=== PATIENT | female | born 1975 | race African-American/Black ===

== ENCOUNTER 2017-05-22 23:06 | Inpatient (IN) ==
--- NOTE | 2017-05-22 23:28 | Emergency Department Note ---
Arrival - Arrival Chief Complaint: Non-Specific Stated Complaint: Seizure ED Nursing Triage Note: Pt transfer from [facility] with new onset of seizure. Mode of Arrival: Stretcher Time Seen by Provider: 05/22/17 23:26 - History of Present Illness HPI Narrative: This is a 42-year-old female of descent who is transferred from [facility] where she presented in the emergency department because of a seizure witnessed by her where a workup showed a normal CT scan of the brain normal urine drug screen but showed a hemoglobin of 5 and hematocrit of 16. The patient is a known alcoholic drinking mostly beer and is noted to have an elevated bilirubin of 2.6 and elevated liver function studies. Patient's daughter says that she has pica where she eats monserrat. He denies black stools or abdominal pain. Allergies/Adverse Reactions: Allergies Allergy/AdvReac Type Severity Reaction Status Date / Time No Known Allergies Allergy Unverified 05/22/17 23:15 Review of System - Review of System Constitutional: Absent: fever, night sweats Eyes: Absent: redness, vision change Head/Ears/Nose/Throat: Absent: epistaxis, nasal drainage Respiratory: Absent: respiratory distress, wheezing Cardiovascular: Absent: dyspnea on exertion, orthopnea Gastrointestinal: Absent: diarrhea, constipation Genitourinary female: Absent: dysuria, frequency Musculoskeletal: Absent: joint swelling, lower back pain Skin: Absent: change in color, change in hair/nails Neurological: Absent: numbness, paresthesias Psychiatric: Absent: anxiety, depression Endocrine: Absent: heat intolerance, polydipsia, polyuria Hematological/Lymphatic: Absent: easy bruising, lymphadenopathy Allergic/Immunologic: Absent: urticaria, itchy eyes Medical,Surgical,& Family Hx - Surgical History Reproductive Surgeries: Surgical HX of;: Hysterectomy - Social History Smoking Status: Unknown if ever smoked Frequency of Alcohol Use: Occasionally Type of Drug Use: None Exam Vital Signs: Vital Signs Temperature 98.7 F 05/22/17 23:12 Pulse Rate 92 H 05/22/17 23:12 Respiratory Rate 20 05/22/17 23:12 Blood Pressure 115/84 05/22/17 23:12 O2 Sat by Pulse Oximetry 98 05/22/17 23:12 - General General appearance: alert - Eye Eye exam: Present: PERRL, EOMI - ENT ENT exam: Present: normal exam, normal oropharynx - Neck Neck exam: Present: normal inspection, full ROM - Chest Chest inspection: Present: normal inspection - Cardiovascular Cardiovascular exam: Present: regular rate, normal rhythm - Abdominal Exam Abdominal exam: Present: soft, distention - Extremities Exam Extremities exam: Present: normal inspection, full ROM - Back Exam Back exam: Present: normal inspection, full ROM - Neurological Exam Neurological exam: Present: alert, oriented X3, CN II-XII intact - Psychiatric Psychiatric exam: Present: normal affect, normal mood - Skin Skin exam: Present: warm, dry Course Course Narrative: The patient has hemoglobin of 5 and hematocrit of 16. She appears to have alcoholic liver disease and it could be that her new onset seizure disorder was due to alcohol withdrawal symptoms. The case was discussed with the hospitalist who agreed to admit the patient to the hospital for possible blood transfusion and further evaluation and treatment. Disposition Clinical Impression: Seizure, Acute alcoholic liver disease, Anemia Disposition: Still a Patient Additional Instructions: Because the patient's hemoglobin is 5 and she appears to have alcohol-related liver disease and a first-time seizure it seems reasonable patient should be admitted to the hospital. The case was discussed with the hospitalist who agreed to admit the patient.
[2017-05-23] MEDS ORDERED: ACETAMINOPHEN 325 MG TABLET PO PRN (00:41)
[2017-05-23] MEDS ORDERED: LORazepam 2 MG/1 ML VIAL IV PRN (00:46)
[2017-05-23] MEDS ORDERED: SODIUM CHLORIDE 0.9% 250 ML IV PRN (00:47)
--- NOTE | 2017-05-23 01:03 | Hospitalist History & Physical ---
Assessment and Plan (1) Alcoholism Status: Acute Current Visit: Yes (2) Thrombocytopenia Status: Acute Current Visit: Yes (3) Hypomagnesemia Status: Acute Current Visit: Yes (4) Hypokalemia Status: Acute Current Visit: Yes (5) Anemia Status: Acute Current Visit: Yes (6) Seizure Status: Acute Assessment and plan: Our plan for this patient. 1. Admit patient to monitored bed 2. Repeat all labs 3. Transfuse 2 units of packed red blood cells if hemoglobin is less than 8 4. Replete magnesium if it is confirmed low 5. Replete potassium if it is confirmed low 6. DT prophylaxis 7. Obtain record of CT scan of head from outside facility 8. Anemia profile Current Visit: Yes History of Present Illness Chief complaint: Seizure activity History of present illness: Ms. Mccall is a 42 year old female with past medical history of alcoholism presents to our hospital as a transfer from [facility]. According to the patient was doing fine tonight. All of a sudden she started doing some violent shaking. He describes it is her whole body was shaking and she was unresponsive. The whole episode lasted approximately 1 minute there was no loss of bowel or bladder function. She would not respond to him during the. During the seizure or right after the seizure. He said that she she was not herself for at least 2-3 minutes and then started to respond to him at that time. EMS got there after about 10 minutes and brought her to [facility] where she had a workup done. Patient was found to be hypokalemic hypomagnesemic and anemic at the outside facility. Labs were not repeated our hospital. No medications other than oral Ativan was given to the patient. She was subsequently transferred to our hospital for further evaluation I was consulted to admit her. Allergies Allergy/AdvReac Type Severity Reaction Status Date / Time No Known Allergies Allergy Unverified 05/22/17 23:15 Medical,Surgical,& Family Hx - Medical History Medical History: noncontributory (Patient denies any medical problems) - Surgical History Reproductive Surgeries: Surgical HX of;: Hysterectomy - Family History Family History: Reports;: Family Hypertension - Social History Smoking Status: Unknown if ever smoked Frequency of Alcohol Use: Frequently Type of Drug Use: None 12 point system: reviewed and no additional remarkable complaints except as stated Exam - Constitutional Vitals: Period Temp Pulse Resp BP Sys/Palmer Pulse Ox Last 24 Hr 98.7 F-98.7 F 92-92 20-20 115-115/84-84 98 General appearance: under weight - Head Head exam: Present: normal inspection - Eye Eye exam: Present: EOMI Pupils: Present: KAILA - ENT ENT exam: Present: normal exam - Neck Neck exam: Present: normal inspection - Respiratory Respiratory exam: Present: clear to auscultation bilaterally - Cardiovascular Cardiovascular exam: Present: regular rate and rhythm - GI/Abdominal GI/Abdominal exam: Present: normal bowel sounds - Extremities Exam Extremities exam: Present: normal inspection - Back Exam Back exam: Present: normal inspection - Neurological Exam Neurological exam: Present: alert - Psychiatric Psychiatric exam: Present: normal affect - Skin Skin exam: Present: normal color Results - Labs Labs: Patient had a workup at the outside hospital. White count 6.7 hemoglobin 5.1 hematocrit 16.7 platelets 98 glucose 141 BUN 7 creatinine 0.7 sodium 135 potassium 3.0 chloride 101 bicarb 18 calcium 7.[address] scan is was performed at the outside facility. I cannot get them to answer the phone
[2017-05-23 01:47] LABS: Basophils % 0.4 % (0.0-0.8); Eosinophils % 0.8 % (0.00-10.9); Hematocrit 23.7 VOL% (35.7-47.0); Hemoglobin 7.3 GM/DL (12.0-16.0); Immature Granulocytes % 0.8 %; Immature Granulocytes Absolute 0.04 #; Mean Corpuscular HGB Conc 30.8 GM/DL (32-36); Mean Corpuscular Hemoglobin 25 PG (27-34); Mean Corpuscular Volume 80.6 FL (87-102); Mean Platelet Volume 11.6 FL (9.6-12.0); Monocytes # 0.8 10*3/uL (0.11-0.8); Monocytes % 15.3 % (1.7-12.7); NRBC # 0.15 10*3/uL; Neutrophils # 3.2 10*3/uL (1.4-7.4); Neutrophils % 62.7 % (38.7-73.9); Red Blood Count 2.94 MC/CUMM (3.8-5.5); Red Cell Distribution Width 26.8 % (9.3-17.3); White Blood Count 5.1 T/CUMM (4-12)
[2017-05-23 01:52] LABS: Platelet Count 61 T/CUMM (130-400)
[2017-05-23 01:58] LABS: Albumin 2.2 G/DL (3.4-5.0); Bilirubin,Total 2.3 MG/DL (0.2-1.0); Calcium 7.1 MG/DL (8.5-10.1); Osmolality,Calculated 265.2 MOS/KG (273-304); Potassium 2.8 MMOL/L (3.5-5.1); Total Protein 8.4 G/DL (6.4-8.3)
[2017-05-23] MEDS ORDERED: POTASSIUM CHLORIDE 20 MEQ TABLET PO PRN (02:29)
[2017-05-23 02:55] LABS: Sedimentation Rate-Westergren 97 MM/HR (0-20)
[2017-05-23] MEDS ORDERED: MAGNESIUM SULF RIDER 4 GM in PREMIX 1 EACH IV PRN (03:30)
[2017-05-23] MEDS: MAGNESIUM SULF RIDER 2 GM in PREMIX 1 EACH IV PRN ×2 (04:59→11:57)
[2017-05-23] MEDS: POTASSIUM CHLORIDE 20 MEQ TABLET PO PRN ×4 (04:59→10:21)
[2017-05-23 05:06] LABS: Band Neutrophils 20 % (0-10); Lymphocytes 19 % (20-55); Segmented Neutrophils 51 % (50-85); Total Cells Counted 100
[2017-05-23 05:07] LABS: Hypochromasia 2+; Target Cells 3+
[2017-05-23 05:08] LABS: Polychromasia 1+
[2017-05-23 05:09] LABS: Anisocytosis 2+; Nucleated Red Blood Cells 2 (0-5); Poikilocytosis 1+
[2017-05-23 06:52] LABS: Folate 13.2 NG/ML (5.4-24.0); Vitamin B12 > 2000 PG/ML (211-911)
[2017-05-23] MEDS ORDERED: POTASSIUM CHLORIDE 20 MEQ TABLET PO ONE ×2 (08:11→15:00)
[2017-05-23] MEDS: MULTIVITAMIN (CENTRUM) TABLET PO SCH (08:13)
[2017-05-23] MEDS: FOLIC ACID 1 MG TABLET PO SCH (08:13)
[2017-05-23] MEDS: THIAMINE 100 MG TABLET PO SCH (08:13)
[2017-05-23] MEDS: CLORAZEPATE 3.75 MG TABLET PO SCH ×3 (08:13→20:50)
[2017-05-23] MEDS: PANTOPRAZOLE 40 MG TABLET PO SCH (08:13)
--- NOTE | 2017-05-23 08:18 | XRay Report ---
History is short of breath Chest, one view The heart is normal in size. The lungs are clear. Impression: No acute pathology seen. PROCEDURE INTERPRETED AT [facility] DEPARTMENT OF RADIOLOGY Final Report Signed by: Dr. Luisa Duff
[2017-05-23] MEDS: MAGNESIUM OXIDE 400 MG TABLET PO SCH ×3 (09:29→20:50)
[2017-05-23 09:48] LABS: Hemoglobin A1 (Alkaline) 97.8 % (96.5-98.5); Hemoglobin A2 (Alkaline) 2.2 % (1.5-3.5)
--- NOTE | 2017-05-23 10:48 | Event Note ---
Patient seen and examined. No acute events overnight. Case discussed with nursing staff. Labs reviewed. Ms. Mccall is receiving her second unit of packed red blood cells now. She is also receiving aggressive potassium and magnesium replacement. She has had no further seizure activity. Her son is at the bedside. We discussed her chronic alcohol intake and the need to abstain from all alcohol products. The patient has evidence of chronic liver disease secondary to chronic alcohol ingestion. She has anemia as well as thrombocytopenia with elevated and abnormal liver function tests. She is hospitalized for new onset seizure which may be related to alcohol withdrawal versus severe electrolyte abnormalities including hypokalemia and hypomagnesemia. She is awake and alert and oriented and was able to answer all questions. She understands that she needs to quit drinking alcohol. Further recommendations will depend on her response to therapy. This is an addendum to the previously documented history and physical as this patient was admitted after midnight by my partner.
[2017-05-23 13:20] LABS: Basophils % 0.5 % (0.0-0.8); Eosinophils # 0.1 10*3/uL (0.0-0.87); Eosinophils % 0.9 % (0.00-10.9); Hematocrit 26.6 VOL% (35.7-47.0); Hemoglobin 8.3 GM/DL (12.0-16.0); Immature Granulocytes % 0.6 %; Immature Granulocytes Absolute 0.04 #; Lymphocytes % 14.4 % (21.3-54.2); Mean Corpuscular HGB Conc 31.2 GM/DL (32-36); Mean Corpuscular Hemoglobin 25 PG (27-34); Mean Corpuscular Volume 79.2 FL (87-102); Monocytes # 0.9 10*3/uL (0.11-0.8); Monocytes % 13.7 % (1.7-12.7); NRBC # 0.15 10*3/uL; Neutrophils # 4.7 10*3/uL (1.4-7.4); Neutrophils % 69.9 % (38.7-73.9); Red Blood Count 3.36 MC/CUMM (3.8-5.5)
[2017-05-23 13:21] LABS: Platelet Count 82 T/CUMM (130-400); White Blood Count 6.7 T/CUMM (4-12)
[2017-05-23 13:41] LABS: Calcium 7.2 MG/DL (8.5-10.1); Magnesium 2.4 MG/DL (1.8-2.4); Osmolality,Calculated 266.2 MOS/KG (273-304)
[2017-05-23 13:49] LABS: Albumin 2.2 G/DL (3.4-5.0); Bilirubin,Total 2.6 MG/DL (0.2-1.0); Calcium 7.5 MG/DL (8.5-10.1); Magnesium 2.6 MG/DL (1.8-2.4); Osmolality,Calculated 266.2 MOS/KG (273-304); Total Protein 8.2 G/DL (6.4-8.3)
--- NOTE | 2017-05-23 14:41 | Neurology Consult Note ---
History of Present Illness History of present illness: Ms. Mccall is a 42 year old right-handed with past medical history of alcoholism presents to our hospital as a transfer from [facility]. Patient reported that she probably had a seizure last night. She reported that she was sitting and reading book and she passed out. is not available at this time. However patient reported that her told her that she was shaking all over. Patient does admit tongue biting. According to the chart reported that she was doing fine last night. All of a sudden she started doing some violent shaking. He describes it was her whole body was shaking and she was unresponsive. No urinary incontinence reported. The downtime was probably 2 minutes followed by some confusion and tiredness for another 2-3 minutes. Patient was found to be hypokalemic hypomagnesemic and anemic at the outside facility. Labs were not repeated our hospital. No medications other than oral Ativan was given to the patient. Home Medications Medication Instructions Recorded Confirmed Type No Known Home Medications [No 05/23/17 05/23/17 History Known Home Medications] Allergies Allergy/AdvReac Type Severity Reaction Status Date / Time No Known Allergies Allergy Unverified 05/22/17 23:15 12 point system: reviewed and no additional remarkable complaints except as stated Medical,Surgical,& Family Hx - Medical History Gastrointestinal: History of: GERD (Takes Prilosec OTC as needed) Hematology: History of: Anemia Other: History of: Miscellaneous Medical Problems (Pica) - Surgical History Thoracic Surgeries: Patient denies;: Organ Transplant, Lobectomy Neurologic Surgeries: Patient denies: Neurologic Surgery HEENT Surgeries: Patient denies: Eye Surgery, Tonsilectomy & Adenoidectomy Abdominal Surgeries: Patient denies: Abdominal Surgery Reproductive Surgeries: Surgical HX of;: Hysterectomy Patient denies;: Genitourinary Surgery - Family History Family History: Reports;: Family Hypertension - Social History Smoking Status: Never smoker Frequency of Alcohol Use: Frequently Type of Drug Use: None Exam - Constitutional Vitals: Period Temp Pulse Resp BP Sys/Palmer Pulse Ox Last 24 Hr 98 F-99.3 F 76-98 17-21 107-145/67-89 93-100 Exam: GENERAL: Patient is in no acute distress. NECK: Neck is supple. There is no JVD. No carotid bruits present. No thyroid masses. CVS: First and second heart sounds are normal. There is no S3 present. Regular rate and rhythm. RESPIRATORY: Lungs are clear to auscultation without any rales or rhonchi. ABDOMEN: Soft and non-tender. Bowel sounds are present. There is no hepatosplenomegaly. EXT: There is no palpable edema. Peripheral pulses are present. Skin: No rashes Central Nervous system: General: Alert, awake and Oriented x 3 Speech: Fluent Comprehension: Intact and normal Facial expressions: Normal Cranial Nerves: CN1/Olfactory: Normal CN II/ Optic: Normal, Visual Hobson unreliable CN III, and : KAILA & EOMI CN V: Normal & intact CN VII: face is symmetric CNVIII: Normal CN XI/X/XI/XII: Intact and Normal Motor: Bulk and Tone is normal. Strength in the right 5/5 Strength in the left 5/5 Sensory: Grossly intact for all the modalities of PP, LT and temp sense Reflexes: 1+ and symmetrical Cerebellar function: Normal finger to nose and heel to hobbs testing. Toes: Equivocal Gait: Not tested at this time Results - Labs CBC & BMP: 05/23/17 13:12 05/23/17 13:12 Assessment and Plan (1) New onset seizure Status: Acute Assessment and plan: This could very well be alcohol induced. MRI of the brain EEG Thank you for the consult Current Visit: Yes
--- NOTE | 2017-05-23 16:38 | Magnetic Resonance Report ---
Exam: MR head/brain wo con Date: 05/23/2017 2:42 PM Comparison: CT brain 05/22/2017 Indication: New onset seizures Technique:[Multiple acquisitions were obtained including sagittal T1, coronal T2, and axial ADC, diffusion, FLAIR, T2, GRE, and T1 scans without contrast only. Scans were obtained on a 1.5 Yusra magnet.] Findings: The ventricles remain normal in size with no midline displacement. No acute infarction is identified on the diffusion scans. Diffuse bilateral T1 basal ganglia hyperintensity. The pituitary has normal appearance and the cerebellar tonsils are most normal in location. No acute infarction is identified on the diffusion scans. No evidence of hemorrhage, mass, extracerebral collection, or mesial temporal sclerosis. Diffuse atrophy which is pronounced for the patient's stated age. Mucosal thickening/fluid in the paranasal sinuses especially in the ethmoid air cells and the right maxillary sinus. No acute findings in the orbits, temporal bones, and [place] of Zuniga. Impression: Diffuse cerebral atrophy which is pronounced for the patient's stated age. Symmetric bilateral basal ganglia T1 hyperintensity which can be associated with calcium and phosphate abnormalities, hepatic failure, Ac's disease, toxins, etc. Moderate sinusitis. PROCEDURE INTERPRETED AT [facility] DEPARTMENT OF RADIOLOGY Final Report Signed by: Dr. Linda Merino
[2017-05-23 19:40] LABS: Barbiturates Screen,Urine Negative (Negative); Benzodiazepines Screen,Urine Negative (Negative); Cannabinoid Screen,Urine Negative (Negative); Opiate Screen,Urine Negative (Negative); Phencyclidine Screen,Urine Negative (Negative)
[2017-05-24 05:32] LABS: Basophils % 0.2 % (0.0-0.8); Eosinophils # 0.1 10*3/uL (0.0-0.87); Eosinophils % 1.1 % (0.00-10.9); Hematocrit 24.2 VOL% (35.7-47.0); Hemoglobin 7.8 GM/DL (12.0-16.0); Immature Granulocytes % 0.3 %; Immature Granulocytes Absolute 0.02 #; Lymphocytes # 1.4 10*3/uL (1.4-4.0); Lymphocytes % 22.9 % (21.3-54.2); Mean Corpuscular HGB Conc 32.2 GM/DL (32-36); Mean Corpuscular Hemoglobin 27 PG (27-34); Mean Corpuscular Volume 82.3 FL (87-102); Mean Platelet Volume 11.9 FL (9.6-12.0); Monocytes # 0.8 10*3/uL (0.11-0.8); NRBC # 0.08 10*3/uL; Neutrophils # 3.9 10*3/uL (1.4-7.4); Neutrophils % 62.5 % (38.7-73.9); Red Blood Count 2.94 MC/CUMM (3.8-5.5); Red Cell Distribution Width 23.9 % (9.3-17.3); White Blood Count 6.2 T/CUMM (4-12)
[2017-05-24 05:34] LABS: Platelet Count 92 T/CUMM (130-400)
[2017-05-24 05:55] LABS: Calcium 6.9 MG/DL (8.5-10.1); Osmolality,Calculated 268.8 MOS/KG (273-304); Potassium 4.7 MMOL/L (3.5-5.1)
[2017-05-24 06:38] LABS: Anisocytosis 2+; Band Neutrophils 1 % (0-10); Eosinophils 1 % (0-10); Lymphocytes 21 % (20-55); Myelocytes 4 %; Nucleated Red Blood Cells 1 (0-5); Platelet Estimate Decreased; Polychromasia Slight; Segmented Neutrophils 64 % (50-85); Target Cells Few; Total Cells Counted 100
[2017-05-24] MEDS: PANTOPRAZOLE 40 MG TABLET PO SCH (07:59)
[2017-05-24] MEDS: CLORAZEPATE 3.75 MG TABLET PO SCH ×3 (07:59→21:39)
[2017-05-24] MEDS: FOLIC ACID 1 MG TABLET PO SCH (07:59)
[2017-05-24] MEDS: MAGNESIUM OXIDE 400 MG TABLET PO SCH ×3 (07:59→21:39)
[2017-05-24] MEDS: THIAMINE 100 MG TABLET PO SCH (07:59)
[2017-05-24] MEDS: MULTIVITAMIN (CENTRUM) TABLET PO SCH (07:59)
--- NOTE | 2017-05-24 12:49 | Neurology Progress Note ---
Neurology - PN : Subjective Interval history: Patient seems to be doing okay. No more seizures reported. EEG is within normal limits. MRI looks okay except cerebral atrophy. It looks like patient most likely had alcohol induced/withdrawal seizure. Exam (Progress Note) - Constitutional Vitals: Period Temp Pulse Resp BP Sys/Palmer Pulse Ox Last 24 Hr 98.2 F-99.0 F 73-85 17-20 91-110/67-73 97-100 Exam: GENERAL: Patient is in no acute distress. NECK: Neck is supple. There is no JVD. No carotid bruits present. No thyroid masses. CVS: First and second heart sounds are normal. There is no S3 present. Regular rate and rhythm. RESPIRATORY: Lungs are clear to auscultation without any rales or rhonchi. ABDOMEN: Soft and non-tender. Bowel sounds are present. There is no hepatosplenomegaly. EXT: There is no palpable edema. Peripheral pulses are present. Skin: No rashes Central Nervous system: General: Alert, awake and Oriented x 3 Speech: Fluent Comprehension: Intact and normal Facial expressions: Normal Cranial Nerves: CN1/Olfactory: Normal CN II/ Optic: Normal, Visual Hobson unreliable CN III, and : KAILA & EOMI CN V: Normal & intact CN VII: face is symmetric CNVIII: Normal CN XI/X/XI/XII: Intact and Normal Motor: Bulk and Tone is normal. Strength in the right 5/5 Strength in the left 5/5 Sensory: Grossly intact for all the modalities of PP, LT and temp sense Reflexes: 1+ and symmetrical Cerebellar function: Normal finger to nose and heel to hobbs testing. Toes: Equivocal Gait: Able to get up and walk Results - Labs CBC & BMP: 05/24/17 04:37 05/24/17 04:37 Assessment and Plan (1) New onset seizure Status: Acute Assessment and plan: No treatment for seizure indicated at this time. This is her first seizure. I have discussed at length with the patient and her son regarding disease process, treatment options and effect of alcohol on seizures. I have discussed that she has to quit alcohol completely. No driving, swimming or operating heavy machinery for 6-8 month as per [place] state law Okay to go home from neuro standpoint Sign off please call as needed Current Visit: Yes
[2017-05-24 14:48] LABS: Hemoglobin 8.4 GM/DL (12.0-16.0)
--- NOTE | 2017-05-24 18:45 | Hospitalist Progress Note ---
Assessment and Plan (1) Seizure Status: Acute Assessment and plan: No indication for acute seizure medication. See neurology consult. Driving restrictions. DC home tomorrow. Current Visit: Yes (2) Acute alcoholic liver disease Status: Acute Current Visit: Yes (3) Anemia Status: Acute Assessment and plan: Status post 2 units of packed red blood cells. No evidence of further bleeding. Current Visit: Yes (4) Alcoholism Status: Chronic Current Visit: Yes (5) Thrombocytopenia Status: Chronic Current Visit: Yes Hospitalist: Subjective Interval history: Patient seen and examined. No acute events overnight. Case discussed with nursing staff. Labs reviewed. EEG without evidence of acute seizure activity. Neurology consult reviewed. Plan for discharge home in a.m. Exam - Constitutional Vitals: Period Temp Pulse Resp BP Sys/Palmer Pulse Ox Last 24 Hr 98 F-98.8 F 73-94 17-20 100-121/67-85 94-100 Exam: Constitutional System: No distress. No tremulousness. Head: Normocephalic, atraumatic. Ears, Nose and Throat System: No pain or tenderness. No epistaxis or discharge Eyes System: Pupils equal, round, and reactive. Extraocular muscles intact. Neck: Supple, without adenopathy, No jugular venous distention. No thyromegaly, neck mass, or prior surgery apparent. Respiratory System: Chest clear to auscultation. Cardiovascular System: Heart with regular rate and rhythm. No murmur. GI System: Abdomen soft, nontender. Normo active bowel sounds present. Musculoskeletal System: limbs with no pedal edema. Full distal pulses. Normal capillary refill. Neurological System: No discernable sensory deficit. No aphasia Psychiatric System: Conversation is rational Results - Labs CBC & BMP: 05/24/17 14:29 05/24/17 04:37 Lab Results: I have reviewed the past 24 hour labs Specialty Discharge - Follow Up or Referrals
[2017-05-25] MEDS: MULTIVITAMIN (CENTRUM) TABLET PO SCH (08:01)
[2017-05-25] MEDS: THIAMINE 100 MG TABLET PO SCH (08:01)
[2017-05-25] MEDS: CLORAZEPATE 3.75 MG TABLET PO SCH (08:01)
[2017-05-25] MEDS: MAGNESIUM OXIDE 400 MG TABLET PO SCH (08:01)
[2017-05-25] MEDS: PANTOPRAZOLE 40 MG TABLET PO SCH (08:01)
[2017-05-25] MEDS: FOLIC ACID 1 MG TABLET PO SCH (08:01)
[2017-05-25 08:40] VITALS: BP 116/73
--- NOTE | 2017-05-25 11:24 | Discharge Summary ---
Hospital Course - Hospital Course Hospital Course: (1) Alcoholism Status: Acute Current Visit: Yes (2) Thrombocytopenia Status: Acute Current Visit: Yes (3) Hypomagnesemia Status: Acute Current Visit: Yes (4) Hypokalemia Status: Acute Current Visit: Yes (5) Anemia Status: Acute Current Visit: Yes (6) Seizure Status: Acute Current Visit: Yes History of Present Illness Chief complaint: Seizure activity History of present illness: Ms. Mccall is a 42 year old female with past medical history of alcoholism presents to our hospital as a transfer from [facility]. According to the patient was doing fine tonight. All of a sudden she started doing some violent shaking. He describes it is her whole body was shaking and she was unresponsive. The whole episode lasted approximately 1 minute there was no loss of bowel or bladder function. She would not respond to him during the. During the seizure or right after the seizure. He said that she she was not herself for at least 2-3 minutes and then started to respond to him at that time. EMS got there after about 10 minutes and brought her to [facility] where she had a workup done. Patient was found to be hypokalemic hypomagnesemic and anemic at the outside facility. Labs were not repeated our hospital. No medications other than oral Ativan was given to the patient. She was subsequently transferred to our hospital for further evaluation I was consulted to admit her. Assessment and plan: Our plan for this patient. 1. Admit patient to monitored bed 2. Repeat all labs 3. Transfuse 2 units of packed red blood cells if hemoglobin is less than 8 4. Replete magnesium if it is confirmed low 5. Replete potassium if it is confirmed low 6. DT prophylaxis 7. Obtain record of CT scan of head from outside facility 8. Anemia profile Hospital course: The patient was admitted to E. with a molder labels. She was transfused 2 units of packed red blood cells. Electrolyte replacement for hypokalemia and hypomagnesemia via IV and oral routes. Consultation with neurology for workup of stroke. EEG without epileptic discharges. The patient's primary problem appears to be her chronic alcoholism and chronic alcohol intake. She has anemia which is acute on chronic as well as thrombocytopenia also acute on chronic due to chronic liver disease due to chronic alcoholism. This is also the cause of her hypokalemia and hypomagnesemia. This may also be the underlying cause of her seizure activity. She was not started on seizure medications but was informed that she should not drive in accordance with [place] law. Please see the neurology consult for further details. On the day of discharge 05/25/2017, the patient was awake alert oriented 3 and in no acute distress. She understands the need to stop drinking alcohol. She verbalizes her understanding. She was given a prescription for Tranxene upon discharge. She was not on any home medications for reconciliation upon admission. Multivitamin thiamine and folate therapy were recommended upon discharge. - Time spent with patient Time with patient DS: Greater than 30 minutes (Total discharge time for this patient, including [id number] time, clinical documentation, medication reconciliation, and discharge planning was 40 minutes.) Diagnosis - Discharge Diagnosis (1) Seizure Status: Resolved (2) Acute alcoholic liver disease Status: Chronic (3) Anemia Status: Chronic (4) Alcoholism Status: Chronic (5) Thrombocytopenia Status: Chronic Specialty Discharge - Follow Up or Referrals Discharge Plan - Discharge Data Disposition: Disch To Home/Self Care Condition at Discharge: Stable Discharge Diet: advance to your usual diet Activity: resume usual activities as tolerated Hygiene: no restrictions Weight Bearing at Discharge: full weight bearing Driving: no restrictions Contact your physician if you experience:: fever over 101, Nausea/Vomiting, Bleeding - Discharge Medications New Clorazepate [Tranxene] 3.75 mg PO TID #20 tablet Folic Acid Tab 1 mg PO DAILY tablet Magnesium Oxide 400 mg PO TID tablet Multivitamin (Centrum) [Centrum Tab] 1 tablet PO DAILY tablet Thiamine Tab [Vitamin B1 Tab] 100 mg PO DAILY tablet - Follow Up or Referral - Forms/Instructions Instructions: Non-epileptic Seizures (DC), Alcohol Intoxication (DC), Alcohol Withdrawal (DC), Anemia (DC) Additional Discharge Instructions: Follow-up with primary care physician in 1 week. Abstain from all alcohol intake. Exam - Constitutional Vitals: Period Temp Pulse Resp BP Sys/Palmer Pulse Ox Last 24 Hr 98 F-98.9 F 75-94 15-26 101-121/63-85 94-100 Discharge Results Procedures and tests throughout hospitalization: Pending Orders 05/24/17 07:51 Occult Blood, Stool Stat Labs on day of discharge: Labs from last 24 hours 05/24/17 14:29 Hgb 8.4 L Hct 27.0 L DS: Provider Date of admission: 05/23/17 00:41 Primary care physician: . No PCP Attending physician on admission: Karmen Suarez MD Consults: 05/23/17 00:56 Consult to Physician [CONS] Routine Comment: new onset seizure Consulting Provider: Emigdio Causey Person Notified: Christy Date Notified: 05/23/17 Time Notified: 09:28 Consult Notification Comment: Discharging clinician: Karmen Suarez MD Expected date of discharge: 05/25/17
== END 2017-05-25 12:04 | disposition home or self-care (01) | DRG 897 ==
LOC: N.ED 23:06 → N.EDINP 05-23 00:41 → N.5E 05-23 01:19
PROVIDERS: ADMIT Family Medicine; ATTEND Family Medicine